=== PATIENT | female | born 1955 | race Caucasian/White ===

== ENCOUNTER 2017-03-14 08:15 | Emergency (ER) | payer MEDICAID, OTHER ==
[~2017-03-14] VITALS: Ht 162.6 cm; Wt 85.7 kg
[2017-03-14 08:56] VITALS: BP 94/47
== END 2017-03-14 09:15 | disposition home or self-care (01) ==
LOC: ER 08:15
DX: J20.9 Acute bronchitis, unspecified (principal); I10 Essential (primary) hypertension; F17.210 Nicotine dependence, cigarettes, uncomplicated; F15.10 Other stimulant abuse, uncomplicated

== ENCOUNTER 2019-08-20 10:53 | Inpatient (IN) | payer MEDICAID ==
[2019-08-20] VITALS (31 sets, daily range): BP systolic 0–116; BP diastolic 0–74
[~2019-08-20] VITALS: Ht 162.6 cm; Wt 78.5 kg
[~2019-08-20 10:53] MED LIST: ALL100T PO; ASPI325T4 PO; CARV3.1240 PO; CYCL5TAB PO; FURO40TA4 PO; GABA-339 PO; HYDR-4833 PO; ISOS1TAB37 PO; LISI2.5T47 PO; PANT40T PO; POTA10TA51 PO; SIMV10TA84 PO
[2019-08-20] MEDS ORDERED: PIPERACILLIN-TAZOB 3.375GM 100 ML IV ONE (11:30)
[2019-08-20 11:53] LABS: Basophils # (auto) 0 uL; Eosinophils # (auto) 0 uL; Mean Corpuscular Hgb Conc. 33.9 g/dL (32.0-36.0); Monocytes # (auto) 0.4 uL; Neutrophils # (auto) 0.1 uL
[2019-08-20] MEDS ORDERED: SODIUM CHLORIDE 0.9% 1,000 ML IV ONE ×2 (11:54)
[2019-08-20 11:55] LABS: Basophils % (auto) 0.4 % (0.0-2.0); Eosinophils % (auto) 1.3 % (0.0-7.0); Hematocrit 21.8 % (36.0-46.0); Hemoglobin 7.4 g/dL (12.2-16.2); Lymphocytes # (auto) 0 uL; Lymphocytes % (auto) 7.9 % (10.0-50.0); Mean Corpuscular Hemoglobin 34.2 pg (28.0-32.0); Mean Corpuscular Volume 100.8 fL (80.0-100.0); Neutrophils % (auto) 24.1 % (37.0-80.0); Nucleated Red Blood Cells % 0.6 %; Platelet Count (auto) 46 10^3/uL (140-450); Red Blood Cells 2.16 10^6/uL (4.0-5.20); Red Cell Distribution Width 16.1 % (11.8-14.3)
[2019-08-20 11:57] LABS: Monocytes % (auto) 66.3 % (0.0-12.0)
[2019-08-20 11:59] LABS: INR 1.2 (0.9-1.15); Partial Thromboplastin Time 42.9 sec (23.64-32.05)
[2019-08-20 12:00] LABS: White Blood Cell 0.6 10^3/uL (4.4-10.8)
[2019-08-20] MEDS ORDERED: ALBUTEROL SULF 2.5 MG/0.5ML(0.5%) NEB SOLN NEB SCH (12:00)
[2019-08-20] MEDS ORDERED: VANCOMYCIN PER PHARMACY 0 MG IV SCH (12:00)
[2019-08-20] MEDS ORDERED: IPRATROPIUM BROM 0.5 MG/2.5ML INH SOL NEB PRN (12:00)
[2019-08-20] MEDS ORDERED: ALBUTEROL SULF 2.5 MG/0.5ML(0.5%) NEB SOLN NEB PRN (12:00)
[2019-08-20] MEDS ORDERED: IPRATROPIUM BROM 0.5 MG/2.5ML INH SOL NEB SCH (12:00)
[2019-08-20] MEDS ORDERED: IPRATROPIUM BROM 0.5 MG/2.5ML INH SOL NEB ONE (12:00)
[2019-08-20] MEDS ORDERED: ALBUTEROL SULF 2.5 MG/0.5ML(0.5%) NEB SOLN NEB ONE (12:00)
[2019-08-20 12:01] LABS: Urine Bacteria NONE SEEN /hpf (None Seen); Urine Blood Negative /uL (Negative); Urine Specific Gravity 1.016 (1.001-1.035); Urine WBC 2 /hpf (0 - 5)
[2019-08-20 12:15] LABS: Lactic Acid w/Reflex 5.2 mmol/L (0.4-2.0)
[2019-08-20] MEDS ORDERED: NOREPINEPHRINE 8 MG/250ML KIT 250 ML IV ONE (12:15)
[2019-08-20] MEDS ORDERED: NOREPINEPHRINE 8 MG/250ML KIT 250 ML IV SCH (12:15)
[2019-08-20] MEDS ORDERED: NITROGLYCERIN 0.4 MG SL TAB SL PRN (12:15)
[2019-08-20] MEDS ORDERED: MORPHINE SULF INJ 2 MG/ML SYRINGE 1ML IV PRN (12:15)
[2019-08-20 12:16] LABS: Alanine Aminotransferase 28 U/L (13-56); Albumin 2.3 g/dL (3.4-5.0); Anion Gap 12 (5-15); BUN/Creatinine Ratio 18.6; Blood Alcohol < 3.0 mg/dL (0-5); Blood Urea Nitrogen 36 mg/dL (7-18); Calcium 7.9 mg/dL (8.5-10.1); Carbon Dioxide 23 mmol/L (21-32); Chloride 93 mmol/L (98-107); GFR African American 33 mL/min; GFR Non-African American 28 mL/min; Glucose 67 mg/dL (74-106); Sodium 128 mmol/L (136-145)
[2019-08-20 12:19] LABS: Alkaline Phosphatase 108 U/L (45-117); Aspartate Aminotransferase 43 U/L (15-37); Bilirubin, Total 0.8 mg/dL (0.2-1.0); Total Protein 5.2 g/dL (6.4-8.2)
[2019-08-20 12:27] LABS: Potassium 2.7 mmol/L (3.5-5.1)
[2019-08-20] MEDS: SODIUM CHLORIDE 0.9% 1,000 ML IV SCH ×2 (12:28→13:43)
[2019-08-20] MEDS ORDERED: POTASSIUM CHL 20MEQ/100ML 100 ML IV SCH (12:30)
[2019-08-20] MEDS ORDERED: ETOMIDATE (2MG/ML) 20ML VIAL IV ONE ×2 (12:42→13:30)
[2019-08-20] MEDS ORDERED: SUCCINYLCHOLINE CHLORIDE 20 MG/ML 10ML VIAL IV ONE ×2 (12:43→13:30)
[2019-08-20] MEDS ORDERED: MIDAZOLAM DRIP 50 mg/50mL 50 ML IV ONE (12:43)
[2019-08-20] MEDS ORDERED: VANCOMYCIN 1GM/250ML 250 ML IV ONE (12:45)
[2019-08-20] MEDS ORDERED: fentaNYL Drip 2500mCg/250mlNS 250 ML IV SCH (13:15)
[2019-08-20] MEDS ORDERED: fentaNYL Drip 2500mCg/250mlNS 250 ML IV ONE (13:16)
[2019-08-20] MEDS ORDERED: MIDAZOLAM DRIP 50 mg/50mL 50 ML IV SCH (13:22)
[2019-08-20] MEDS: GABAPENTIN 300 MG CAP PO SCH ×2 (13:44→21:39)
[2019-08-20] MEDS ORDERED: PHENYLEPHRINE INJ 20 MG in D5W 5% 250 ML IV SCH (13:45)
[2019-08-20] MEDS ORDERED: VASOPRESSIN 50 UNITS in D5W 5% 247.5 ML IV SCH (13:45)
[2019-08-20] MEDS ORDERED: PATIENTS OWN MEDICATION (Gabapentin 1 TAB) PO SCH (14:00)
[2019-08-20] MEDS: HYDROCORTISONE SOD SUCC 100 MG/2ML INJ VIAL IV SCH ×2 (14:50→21:39)
--- NOTE | 2019-08-20 16:15 | NUR ---
REPORT Report received from Yanet RN awaiting for patient to arrive to room 109.
[2019-08-20 17:14] LABS: Mean Corpuscular Volume 103.7 fL (80.0-100.0)
[2019-08-20] MEDS ORDERED: FILGRASTIM(TBO) 480 MCG/0.8 ML SYRG SC SCH (17:15)
[2019-08-20 17:16] LABS: Hematocrit 20.9 % (36.0-46.0); Mean Corpuscular Hemoglobin 34.5 pg (28.0-32.0); Mean Corpuscular Hgb Conc. 33.3 g/dL (32.0-36.0); Platelet Count (auto) 56 10^3/uL (140-450); Red Blood Cells 2.02 10^6/uL (4.0-5.20); Red Cell Distribution Width 15.9 % (11.8-14.3)
[2019-08-20 17:25] LABS: BUN/Creatinine Ratio 15.1; Calcium 7.6 mg/dL (8.5-10.1)
[2019-08-20 17:28] LABS: Bilirubin, Total 0.8 mg/dL (0.2-1.0); Total Protein 4.9 g/dL (6.4-8.2)
[2019-08-20 17:48] LABS: Potassium 2.9 mmol/L (3.5-5.1)
[2019-08-20 17:55] LABS: Basophils % (manual) 0 (0.0-2.0); Blast Cells 0; Eosinophils % (manual) 0 (0-7); Promyelocytes % 0; Reactive Lymphocytes 0
[2019-08-20] MEDS ORDERED: PIPERACILLIN-TAZOB 3.375GM 100 ML IV SCH (18:00)
[2019-08-20] MEDS: POTASSIUM CHL 20MEQ/100ML 100 ML IV SCH (18:00)
[2019-08-20 18:06] LABS: Band Neutrophils % (manual) 12; Lymphocytes % (manual) 52 (10.0-50.0); Metamyelocytes % 5; Monocytes % (manual) 18 (0-12); Myelocytes % 1
--- NOTE | 2019-08-20 18:15 | NUR ---
CRITICAL LABS Received critical labs of HGB 7.0 and, Potassium 2.9. Will call [employer] for orders.
--- NOTE | 2019-08-20 18:28 | NUR ---
CRITICAL LABS/NURSE STAFF [employer]USTRIAL Called and spoke to Faizan NURSE STAFF INDUSTRIAL regarding critical labs: potassium 2.9 and aware that ER nurse did not give potassium that was ordered at 1300 states " just give what I ordered earlier today." Aware of blood pressure in the 70's will start Epi gtt, Double concentrate all gtts. Aware urine output in low only 50 for this RN. HGB 7.0 give one unit PRBC and get consent. Will carry out all orders per NURSE STAFF INDUSTRIAL.
--- NOTE | 2019-08-20 18:35 | NUR ---
MD Dr. Villegas at bedside updated on patient condition with new orders, this RN to input into system.
[2019-08-20] MEDS ORDERED: EPINEPHrine HCL INJECTION 8 MG in D5W 5% 250 ML IV SCH (18:50)
[2019-08-20] MEDS ORDERED: PHENYLEPHRINE INJ 40 MG in SODIUM CHL 0.9% 250 ML IV SCH (18:50)
[2019-08-20] MEDS ORDERED: NOREPINEPHRINE BITARTRATE 16 MG in D5W 5% 250 ML IV SCH (18:50)
[2019-08-20] MEDS ORDERED: POTASSIUM CHL 20MEQ/100ML 100 ML IV ONE (19:29)
--- NOTE | 2019-08-20 19:30 | NUR ---
SBP 76. NSR 98. 97.8 ORAL TEMP. NEW DOUBLE STRENGTH DRIPS. HUNG EPI DRIP . NOW WE ARE RASHI ON LEVOPHED, NEOSYNEPHRINE, VASOPRESSIN AND EPI. SEDATION: FENTANYL AND VERSED. CAME DOWN ON THE FENTANYL. RR 20 IS NOW 21. DUSKY. NAWAF DOES NOT MOVE EXTREMITIES. PULSES WEAK. LUNGS COARSE. NOTHING SUCTIONED FROM THE ETT. BLOODY ORAL SECRETIONS. NGT HOOKED TO SUCTION: 470 CC OF CLOUDY PINK DRNG. NO URINE OUTPUT PER SHELDON. BILATERAL FEET ARE COLD. DUSKY COLOR FEET. DIFFICULTY PICKING UP O2 SATURATION
--- NOTE | 2019-08-20 20:00 | NUR ---
TALKED TO RACHEL KAUR. REPORTED THE ABG, UPDATED HIM ON THE VASOPRESSOR DRIPS BEING MAX. ORDER FOR ALBUMIN UNTIL THE BLOOD IS READY. WHEN I ADDED EPI , THE HEART RATE INCREASED TO 110. SBP IS INCREASING. DECREASING THE EPI DRIP. UPC NOT READY YET. ALBUMIN GIVEN.
--- NOTE | 2019-08-20 20:57 | NUR ---
CALLED BLOOD BANK, UPC SHOULD BE READY IN 10 MINUTES
[2019-08-20] MEDS ORDERED: ALBUMIN 5% 250 ML IV ONE (21:00)
--- NOTE | 2019-08-20 21:25 | NUR ---
UPC STARTED. NO REACTION. SBP 114. EPI DRIP AT 1 MCG. UNABLE TO SAFETY PROFESSIONAL GOOD SATURATION. DUSKY. VISITOR INFORMED ME THAT SHE HAS NO RELATIVES. SHE IS AN EMPLOYEE. 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 LUNGS COARSE. FOLLOWING VENTILATOR RR 20. TEMP NORMAL. ORALLY IS COOLER THAN AXILLARY. ABDOMEN SOFT. NGT PUTTING OUT LESS. NOTHING SUCTIONED FROM THE ETT.
[2019-08-20] MEDS ORDERED: PRAVASTATIN SODIUM 20 MG TAB PO SCH (22:00)
[2019-08-20] MEDS ORDERED: PATIENTS OWN MEDICATION (Simvastatin 10 MG) PO SCH (22:00)
--- NOTE | 2019-08-20 22:59 | NUR ---
NO REACTION TO UPC. EPI OFF. TURNED DOWN THE VASOPRESSIN
--- NOTE | 2019-08-20 23:15 | NUR ---
SECOND DEGREE HEART BLOCK AFTER EPI DRIP SHUT OFF. TURNED THE EPI BACK ON AT 1MCG
[2019-08-20] MEDS ORDERED: ATROPINE SULFATE 0.4 MG/1 ML VIAL ONE (23:20)
--- NOTE | 2019-08-20 23:23 | NUR ---
ATROPINE GIVEN. HR LESS THAN 50. 12 LEAD DONE.
--- NOTE | 2019-08-20 23:25 | NUR ---
HAS GONE INTO 2ND DEGREE BLOCK. HR RANGING BETWEEN 50 AND 76. 12 LEAD DONE. QRS WIDE
--- NOTE | 2019-08-20 23:35 | NUR ---
CODE IBAN. 2337: RACHEL KAUR CALLED THE CODE. SEE CODE BLUE SHEET
[2019-08-20] MEDS ORDERED: SODIUM BICARBONATE 8.4% INJ 50ML SYRINGE IV ONE (23:36)
[2019-08-20] MEDS ORDERED: CALCIUM CHL(10%) 100MG/ML 10ML VIAL IV ONE (23:36)
--- NOTE | 2019-08-21 00:01 | NUR ---
[employer] NOTIFIED AND RELEASED THE BODY.
--- NOTE | 2019-08-21 00:12 | NUR ---
[employer] AUT[employer] NOTIFIED
--- NOTE | 2019-08-21 00:20 | NUR ---
MELISA NUNEZ, SISTER NOTIFIED OF . INFORMED HER OF OUR PHONE NUMBER FOR [employer] WHEN SHE DECIDES WHAT TO DO WITH HER SISTERS BODY. NOTIFIED FELY NUNEZ OF HER .
--- NOTE | 2019-08-21 01:28 | NUR ---
SPOKE WITH DATA WAREHOUSING ARCHITECT. DATA WAREHOUSING ARCHITECT RELEASED THE BODY.
[2019-08-21] MEDS ORDERED: MICAFUNGIN SODIUM 100 MG in SODIUM CHL 0.9% 100 ML IV SCH (10:00)
[2019-08-21] MEDS ORDERED: PANTOPRAZOLE 40 MG TAB PO SCH (10:00)
== END 2019-08-20 23:37 | disposition expired | DRG 720 ==
LOC: EDBD 10:53 → ER 10:53 → TELE 10:54 → ICU WEST 17:39
PROVIDERS: ADMIT Nurse Practitioner Acute Care; ATTEND Nurse Practitioner Acute Care
PROC: 30233N1 Transfusion of Nonautologous Red Blood Cells into Peripheral Vein, Percutaneous Approach (ICD-10-PCS; principal; 2019-08-20)
PROC: 5A1935Z Respiratory Ventilation, Less than 24 Consecutive Hours (ICD-10-PCS; 2019-08-20)
DX: A41.9 Sepsis, unspecified organism (principal); J96.00 Acute respiratory failure, unspecified whether with hypoxia or hypercapnia; N17.0 Acute kidney failure with tubular necrosis; R65.21 Severe sepsis with septic shock; G93.41 Metabolic encephalopathy; D61.818 Other pancytopenia; J18.1 Lobar pneumonia, unspecified organism; C85.90 Non-Hodgkin lymphoma, unspecified, unspecified site; I67.2 Cerebral atherosclerosis; E11.9 Type 2 diabetes mellitus without complications; E66.9 Obesity, unspecified; E87.6 Hypokalemia; F17.200 Nicotine dependence, unspecified, uncomplicated; I10 Essential (primary) hypertension; I70.8 Atherosclerosis of other arteries; K21.9 Gastro-esophageal reflux disease without esophagitis; E87.2 Acidosis; K44.9 Diaphragmatic hernia without obstruction or gangrene; K57.30 Diverticulosis of large intestine without perforation or abscess without bleeding; Z79.82 Long term (current) use of aspirin; Z79.84 Long term (current) use of oral hypoglycemic drugs; Z79.899 Other long term (current) drug therapy; Z82.49 Family history of ischemic heart disease and other diseases of the circulatory system; Z86.73 Personal history of transient ischemic attack (TIA), and cerebral infarction without residual deficits; Z92.21 Personal history of antineoplastic chemotherapy; Z88.2 Allergy status to sulfonamides; Z68.29 Body mass index [BMI] 29.0-29.9, adult
CPT/HCPCS: 31500; 36415; 36556; 36600; 51702; 70450; 71045; 71046; 74176; 80053; 80320; 81001; 82805; 83605; 84484; 85007; 85025; 85027; 85610; 85730; 86850; 86900; 86901; 86920; 87040; 87070; 87077; 87081; 87086; 87186; 87205; 93005; 94002; 94640; 94761; 96365; 96368; 96375; 99291; G0378; J0171; J0330; J0461; J1447; J2248; J2250; J2543; J3480; J7060